=== PATIENT | female | born 1970 | race Two or more races ===

== ENCOUNTER 2021-04-30 14:56 | Emergency (ER) | payer OTHER ==
[~2021-04-30] VITALS: Ht 167.6 cm; Wt 61.2 kg
== END 2021-04-30 16:09 | disposition home or self-care (01) ==
LOC: ER 14:56
DX: S01.82XA Laceration with foreign body of other part of head, initial encounter (principal); W17.89XA Other fall from one level to another, initial encounter; Y93.39 Activity, other involving climbing, rappelling and jumping off; Y92.39 Other specified sports and athletic area as the place of occurrence of the external cause